=== PATIENT | female | born 1980 | race Caucasian/White ===

== ENCOUNTER 2017-06-12 11:09 | Outpatient (CLI) | payer SELFPAY ==
[~2017-06-12] VITALS: Ht 160 cm; Wt 63.6 kg
[2017-06-12 11:21] VITALS: BP 111/67; PULSE 70; RESP 18; Ht 160 cm; Wt 63.6 kg
[2017-06-12] MEDS ORDERED: ACET325T33 PO (11:28)
--- NOTE | 2017-06-12 11:49 | PN ---
Date/Time of Note Date/Time of Note DATE: 06/12/17 TIME: 11:41 Assessment/Plan Assessment/Plan Assessment/Plan [facility] Progress Note Date of Service: 06/12/2017 Today's Impression & Plan: Overall doing well and showing no obvious evidence of major postoperative complications or wound problems. Needs her CBD out in a few weeks. Discussed with patient and answered all questions. Patient appeared to understand and agreed with the plans. With above assessment I recommended the followin. F/u with PCP 2. F/u with Dr. Iniguez to remove stent (no longer than 3-4 weeks from now) 3. F/u with us prn; if pain at lovenox shot site in the LLQ does not go away, may consider repeat CT scan of abd/pelvis and follow up with us Thank you very much for allowing us to participate in the care of this very nice patient and wonderful family. If there are any questions, please feel free to contact me at . Nature presenting problem: Moderate risk Complexity decision making: Moderate complexity Please note: Spelling or grammatical errors in this note are likely due to EHR/ dictation systems and are not reflective of patient care quality. Occasional wrong-word or sound-alike substitutions may have occurred due to the inherent limitations of voice recognition software. Please read the chart carefully and recognize, using context, where the substitutions have occurred. The chart may also contain mistakes due to difficulties with voice recognition software. Also please note that the dictation timestamp of this note does not necessarily reflected time of the visit for this service. Updated clinical summary: A very pleasant and otherwise healthy 36-year-old young lady presenting with choledocholithiasis, status post ERCP with stenting at [facility] on 06/02/2017. Final path c/w chronic cholecystitis. Comorbidities: 1. Cholelithiasis with possible acute cholecystitis; s/p an otherwise uncomplicated laparoscopic cholecystectomy and incidental umbilical hernia repair without mesh at [facility] 06/03/17 with findings of cholelithiasis and perhaps, early acute cholecystitis. Final path c/w chronic cholecystitis. 2. Dilated common bile duct, status post ERCP and stenting 3. BMI 25 4. Umbilical hernia Subjective: No major events or complaints since d/c. No major pain complaints and reportedly under control with medications. No N/V, SOB or CP. + bowel activity. Minor discomfort in LLQ away from surgical sites. Objective: Vitals: reviewed; please also see EHR Physical Exam: Lungs: breathing comfortably without tachypnea; no audible wheezes, rales or rhonchi on gross exam Abd: Soft, non-tender, and non-distended; no peritoneal signs or guarding; incisions c/d/i w/o obvious underlying e/e/d/h. LLQ mild tenderness at site of what appeared to be previous medication (? Lovenox) injection with small 3-4 mm lump; not a hernia or infection. Skin: Appears pink and feels warm to touch. Neuro: Awake, alert and follows commands appropriately Exam/Review of Systems Vital Signs Vitals Vital Signs Date Time Temp Pulse Resp B/P Pulse Ox O2 Delivery O2 Flow Rate FiO2 06/12/17 11:21 98.1 70 18 111/67 97 Room Air GILBERTO HELLER M.D. Jun 12, 2017 11:49
== END 2017-06-12 16:14 | disposition home or self-care (01) ==
LOC: HPC 11:09
PROVIDERS: ATTEND Transplant Surgery
DX: K80.20 Calculus of gallbladder without cholecystitis without obstruction (principal); K83.9 Disease of biliary tract, unspecified; K42.9 Umbilical hernia without obstruction or gangrene
CPT/HCPCS: G0463